=== PATIENT | male | born 1985 | race Caucasian/White ===

== ENCOUNTER 2019-09-19 14:49 | Emergency (ER) | payer OTHER ==
[~2019-09-19] VITALS: Ht 170.2 cm; Wt 90.0 kg
[~2019-09-19 14:49] MED LIST: BLEOS OP
[2019-09-19 15:17] VITALS: BP 155/105
[2019-09-19] MEDS ORDERED: proparacaine 0.5% ophthalmic drops 15ml EACHEYE ONE (16:10)
[2019-09-19] MEDS ORDERED: ciprofloxacin 0.3% 2.5ml ophthalmic solution RIGHTEYE ONE (17:15)
[2019-09-19] MEDS ORDERED: ciprofloxacin 0.3% 2.5ml ophthalmic solution RIGHTEYE SCH (20:00)
== END 2019-09-19 17:04 | disposition home or self-care (01) ==
LOC: ER 14:49
DX: T15.01XA Foreign body in cornea, right eye, initial encounter (principal); Z88.1 Allergy status to other antibiotic agents; Z79.899 Other long term (current) drug therapy; W22.8XXA Striking against or struck by other objects, initial encounter; Y93.H2 Activity, gardening and landscaping; Y92.89 Other specified places as the place of occurrence of the external cause; Y99.8 Other external cause status
CPT/HCPCS: 65222; 99284

== ENCOUNTER 2022-09-16 22:10 | Emergency (ER) | payer BC, OTHER ==
[~2022-09-16] VITALS: Ht 167.6 cm; Wt 100.0 kg
[2022-09-16 22:17] VITALS: BP 179/108
[2022-09-16] MEDS ORDERED: AMOX-117 PO (23:25)
[2022-09-17] MEDS ORDERED: AMOX-117 PO ×2 (06:58→11:35)
[2022-09-17] MEDS ORDERED: CHLO473M3 PO (06:58)
== END 2022-09-16 23:34 | disposition home or self-care (01) ==
LOC: ER 22:10
DX: K02.9 Dental caries, unspecified (principal); Z88.1 Allergy status to other antibiotic agents; Z79.899 Other long term (current) drug therapy
CPT/HCPCS: 99283

== ENCOUNTER 2022-09-17 04:42 | Emergency (ER) | payer BC ==
[~2022-09-17] VITALS: Ht 170.2 cm; Wt 100.0 kg
[~2022-09-17 04:42] MED LIST changes: +AMOX-117 PO
[2022-09-17 04:46] VITALS: BP 147/96
[2022-09-17] MEDS ORDERED: HYDROcodone/acetaminophen 5mg/325mg tablet PO ONE (05:25)
--- NOTE | 2022-09-17 06:24 | NUR ---
Assumed care from NOC nurse. Pt in stable condition. Pt laying on gurney HOB elevated. Educated Pt to POC. Pt in agreement.
[2022-09-17] MEDS ORDERED: ibuprofen tablet 400 MG TABLET PO ONE (06:55)
[2022-09-17] MEDS ORDERED: amox tr/potassium clavulanate 875/125mg TAB PO ONE (06:55)
[2022-09-17] MEDS ORDERED: CHLO473M3 PO (06:58)
[2022-09-17] MEDS ORDERED: AMOX-117 PO ×2 (06:58→11:35)
[2022-09-17] MEDS ORDERED: acetaminophen 325mg tablet PO ONE (07:04)
== END 2022-09-17 07:15 | disposition home or self-care (01) ==
LOC: ER 04:42
DX: K04.7 Periapical abscess without sinus (principal); Z88.1 Allergy status to other antibiotic agents; Z79.899 Other long term (current) drug therapy
CPT/HCPCS: 99284